=== PATIENT | male | born 1990 | race Caucasian/White ===

== ENCOUNTER 2025-04-27 11:51 | Emergency (ER) | payer MEDICAID, SELFPAY ==
--- NOTE | ~2025-04-27 | XR_ITS ---
EXAM/ PROCEDURE: XR knee RT min 4V - 04/27/2025 13:18 CDT HISTORY: 34 years old Male with swelling and pain inferior to patella COMPARISON: None available TECHNIQUE: Four view(s) FINDINGS/ IMPRESSION: There are no fractures or dislocations.Joint spaces are within normal limits. Reviewed, dictated and finalized at location A.
[2025-04-27 12:04] VITALS: BP 124/67; PULSE 60; RESP 18; TEMP 36.4; O2SAT 99
[2025-04-27 12:50] VITALS: BP 132/86; PULSE 82; RESP 16; TEMP 36.6; O2SAT 100
--- NOTE | 2025-04-27 12:55 | ED.EXTPRO ---
HPI - Extremity Problem General Chief complaint: Extremity Problem,Nontraumatic Stated complaint: R knee pain Time Seen by Provider: 04/27/25 12:49 Source: patient and RN notes reviewed Mode of arrival: ambulatory Limitations: no limitations History of Present Illness HPI Narrative: This is a 34 yo male who presents for evaluation of right knee pain. He states yesterday he developed right knee pain and swelling. He denies any specific injury. She reports pain is worse with bending his right knee. He has been taking tylenol and ibuprofen for his pain. He states his swelling has improved. He denies calf pain, numbness or tingling. MD Complaint: joint swelling and joint paint Location: right Relieving factors: medication Exacerbating factors: range of motion Related Data Allergies Allergy/AdvReac Type Severity Reaction Status Date / Time Penicillins Allergy Unknown Unknown Verified 04/27/25 11:53 [facility] Past Medical History Medical History (Updated 04/27/25 @ 13:54 by Yanet Palomino MD) Patient denies medical problems Family History Family History (Updated 06/28/14 @ 07:13 by DOCTOR UNKNOWN) Sibling Family history of sudden infant syndrome Other Diabetes mellitus Family history of malignant neoplasm Social History Social History Smoking status: Never smoker Alcohol intake: never Exam Const: General: no acute distress and alert Nutritional Appearance: well nourished Orientation/consciousness: patient oriented x3 Limitations: no limitations HENMT: Head: normal to inspection Mouth: Yes Normal oral and palatal mucosa present, Yes lip normal and Yes moist mucous membranes Throat: posterior oropharynx normal and uvula midline Eyes: EOM: EOMs intact bilaterally Chest: Chest palpation & inspection: normal inspection of the chest Resp: Effort & Inspection: normal respiratory effort Auscultation: clear to auscultation bilaterally Cardio: Rate: regular rate Rhythm: regular rhythm Heart sounds: no murmurs Skin: General skin exam: normal color Rashes: no rashes Wounds: no wounds Neuro: General: patient oriented x3, moves all extremities and CN's II-XI intact bilaterally Extrem: Other: mild right knee swelling, no increased warmth, no redness, there is infrapatellar tenderness Psych: Mental Status: mental status grossly normal Affect: normal affect Course Reevaluation(s) Reevaluation #1: I Discussed with patient that xray was unremarkable. We discussed management with rest, ice, knee immobilization and follow up with PCP . We also discussed pain management with NSAIDS. Denies any other questions. Date: 04/27/25 Time: 13:51 Vital Signs Vital signs: Vital Signs Temperature 97.6 F 04/27/25 12:04 Pulse Rate 60 04/27/25 12:04 Respiratory Rate 18 04/27/25 12:04 Blood Pressure 124/67 04/27/25 12:04 Pulse Oximetry 99 04/27/25 12:04 Oxygen Delivery Room Air 04/27/25 12:04 Temperature 98.4 F 04/27/25 14:08 Pulse Rate 66 04/27/25 14:08 Respiratory Rate 16 04/27/25 14:08 Blood Pressure 109/72 04/27/25 14:08 Pulse Oximetry 98 04/27/25 14:08 Oxygen Delivery Room Air 04/27/25 12:50 MDM - Extremity (Nontraumatic) Imaging Data Radiologist's impression: no acute disease Discharge Plan Discharge Clinical Impression: Acute pain of right knee Patient Disposition: Home Condition: Stable Instructions: Antibiotic Form, Knee Pain (ED), Swollen Joint (ED) Additional Instructions: I recommend getting knee brace to wear to help with pain and stabilization. Take NSAIDs such as ibuprofen, tylenol aleve for pain. Follow up with your primary care provider if pain does not improve in 1 week. Patient Language: [place] Follow-up/Referrals: PHYSICIAN NOT ON STAFF,NONSTAFF [Primary Care Provider] -
[2025-04-27 14:08] VITALS: BP 109/72; PULSE 66; RESP 16; TEMP 36.9; O2SAT 98
== END 2025-04-27 14:11 | disposition home or self-care (01) ==
LOC: ANHED 14:02
PROVIDERS: Emergency Provider General Practice
DX: M25.561 Pain in right knee (principal)
CPT/HCPCS: 73564; 99283